=== PATIENT | female | born 1930 | race Caucasian/White ===

== ENCOUNTER → 2016-12-29 | Day surgery (SDC) | payer MEDICARE, BC, OTHER ==
[~2016-12-29] VITALS: Ht 160 cm; Wt 57.2 kg
[~2016-12-29] MED LIST: /MOXI40TA; ASPI325T; ATEN25TA; BIOT1CAP2 PO; BSS with VANC/TOB/EPI for EYE CASES IR ONE; CALC500T49 PO; COQ-30CA2 PO; CYCLOPENTOLATE 2% OPHTH SOLN 2ML BTL OS ONE; DEPA250T3; ECOT81TA5 PO; FOLI800C PO; FOSA70TA PO; FURO40TA2 PO; HEALON DUET (HEALON 10MG/ML 0.55ML & HEALON ENDOCOAT 30MG/ML 0.85ML) As Ordered ONE; LASI20TA PO; LEVO50TA5 PO; LIDOCAINE 1% SDV 5 ML VIAL As Ordered ONE; LIDOCAINE 4% INJ 5 ML AMP OU ONE; LISI-538 PO; LR 500 ML IV ONE; MIDAZOLAM INJ 2 MG/2 ML VIAL (J2250) As Ordered ONE; MOXIFLOXACIN IN BSS 0.25MG/0.25ML INTRACAMERAL INJ (OR EYE ONLY)(J2280) As Ordered ONE; NIAC250C13 PO; OFLOXACIN 0.3 % (OCUFLOX) OPTH SOL 5ML OS ONE; PHENYLEPHRINE 2.5% OPHTH SOL 2ML OS ONE; PLAV1TAB2 PO; POVIDONE-IODINE 5% OPHTH PREP SOL 30ML As Ordered ONE; SIMV10TA2 OR; SIMV10TA2 PO; SYNT50TA OR; TRIAMCINOLONE PRES FR 40 MG/ML 1ML(TRIESENCE)(OR EYE ONLY)(J3300 PER 1MG) As Ordered ONE; TROPICAMIDE 1% OPHTH SOLN 2ML OS ONE; VALS1TAB46 PO; VITA100067 PO; VITA50TA43 PO; fentaNYL 100 MCG/2 ML INJECTION (J3010) As Ordered ONE
[2016-12-29 11:05] VITALS: BP 149/67
== END | disposition home or self-care (01) ==
LOC: M SDC 09:01
PROVIDERS: ATTEND Ophthalmology
DX: H25.9 Unspecified age-related cataract (principal); I48.91 Unspecified atrial fibrillation; I10 Essential (primary) hypertension; E78.5 Hyperlipidemia, unspecified; E03.9 Hypothyroidism, unspecified; Z88.2 Allergy status to sulfonamides; Z79.899 Other long term (current) drug therapy
CPT/HCPCS: 66984; J2250; J2280; J3010; J3300; V2632

== ENCOUNTER 2018-08-10 16:07 | Emergency (ER) | payer MEDICARE, BC, OTHER ==
[~2018-08-10] VITALS: Ht 160 cm; Wt 62.7 kg
[~2018-08-10 16:07] MED LIST changes: -BSS with VANC/TOB/EPI for EYE CASES IR ONE; -CYCLOPENTOLATE 2% OPHTH SOLN 2ML BTL OS ONE; -HEALON DUET (HEALON 10MG/ML 0.55ML & HEALON ENDOCOAT 30MG/ML 0.85ML) As Ordered ONE; -LASI20TA PO; +LASI20TA3 PO; -LIDOCAINE 1% SDV 5 ML VIAL As Ordered ONE; -LIDOCAINE 4% INJ 5 ML AMP OU ONE; -LR 500 ML IV ONE; -MIDAZOLAM INJ 2 MG/2 ML VIAL (J2250) As Ordered ONE; -MOXIFLOXACIN IN BSS 0.25MG/0.25ML INTRACAMERAL INJ (OR EYE ONLY)(J2280) As Ordered ONE; -OFLOXACIN 0.3 % (OCUFLOX) OPTH SOL 5ML OS ONE; -PHENYLEPHRINE 2.5% OPHTH SOL 2ML OS ONE; -POVIDONE-IODINE 5% OPHTH PREP SOL 30ML As Ordered ONE; -TRIAMCINOLONE PRES FR 40 MG/ML 1ML(TRIESENCE)(OR EYE ONLY)(J3300 PER 1MG) As Ordered ONE; -TROPICAMIDE 1% OPHTH SOLN 2ML OS ONE; -fentaNYL 100 MCG/2 ML INJECTION (J3010) As Ordered ONE
[2018-08-10] MEDS ORDERED: LOSA50TA88 (16:20)
[2018-08-10] MEDS ORDERED: SPIR-10 (16:20)
[2018-08-10] MEDS ORDERED: ACETAMINOPHEN 325 MG TAB PO ONE (17:15)
--- NOTE | 2018-08-10 17:19 | REP ---
Clinical: Trauma. Fall. Technique: AP, lateral, bilateral oblique views of the left hand. Findings: Advanced age-related osteopenia and osteoarthritic degenerative changes are appreciated. No obvious acute fracture or dislocation appreciated. 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 No obvious acute fracture or dislocation. Electronically Signed by Ambrocio Luna MD 08/10/2018 05:10 P
--- NOTE | 2018-08-10 17:46 | REP ---
Clinical: Trauma/fall with headache. Comparison: 11/18/2013 . Findings: Age-related atrophy and microvascular ischemic changes are appreciated along with periventricular leukomalacia. The ventricles and sulci are symmetric. Dugan-white differentiation is maintained. There is no evidence for acute intracranial hemorrhage, mass/mass effect, pathology or infarction. No extra-axial fluid collection. Calvarium is intact. Paranasal sinuses and mastoid air cells are clear. 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 Impression: Age related atrophy and microvascular ischemic changes. No acute intracranial hemorrhage, infarction, or mass/mass effect. Electronically Signed by Ambrocio Luna MD 08/10/2018 05:38 P
[2018-08-10 18:29] VITALS: BP 172/74
--- NOTE | 2018-08-11 07:45 | REP ---
Clinical: Trauma. Fall. Technique: AP, limited lateral, and bilateral oblique views left knee. Findings: Age related osteopenia and generalized degenerative changes are appreciated. Peripheral vascular disease noted. No obvious acute fracture or dislocation. No definite effusion. Impression: Limited examination demonstrates osteopenia and generalized age-related changes. No obvious acute fracture or dislocation. Electronically Signed by Ambrocio Luna MD 08/10/2018 05:40 P
--- NOTE | 2018-08-11 20:41 | ECGEPIP ---
Stationary ECG Study [facility] - ED Test Date: 2018-08-10 Pat Name: THONY GALVEZ Department: Room: - Gender: F Hide Puller: alfonso : 1930 Requested By: JAN Funk PA-C Order Number: [id number] Reading MD: Laura Walsh Measurements Intervals [place] Rate: 68 P: 70 AR: 193 QRS: 69 QRSD: 80 T: 55 QT: 401 QTc: 428 Interpretive Statements SINUS RHYTHM WITH OCCASIONAL SUPRAVENTRICULAR PREMATURE COMPLEXES SIMILAR 11/18/13 Electronically Signed On 08-11-2018 20:41:26 EST by Laura Walsh
== END 2018-08-10 18:40 | disposition home or self-care (01) ==
LOC: M ED 16:07
DX: S61.412A Laceration without foreign body of left hand, initial encounter (principal); S80.02XA Contusion of left knee, initial encounter; S00.83XA Contusion of other part of head, initial encounter; W10.8XXA Fall (on) (from) other stairs and steps, initial encounter; Y92.098 Other place in other non-institutional residence as the place of occurrence of the external cause; M17.12 Unilateral primary osteoarthritis, left knee; M19.042 Primary osteoarthritis, left hand; M85.842 Other specified disorders of bone density and structure, left hand; M85.862 Other specified disorders of bone density and structure, left lower leg; I11.0 Hypertensive heart disease with heart failure; I50.9 Heart failure, unspecified; E03.9 Hypothyroidism, unspecified; Z86.73 Personal history of transient ischemic attack (TIA), and cerebral infarction without residual deficits; Z79.899 Other long term (current) drug therapy; Z79.82 Long term (current) use of aspirin; Z88.2 Allergy status to sulfonamides

== ENCOUNTER 2018-11-08 12:45 | Emergency (ER) | payer MEDICARE, BC, OTHER ==
[~2018-11-08] VITALS: Ht 162.6 cm; Wt 60.5 kg
[~2018-11-08 12:45] MED LIST changes: -/MOXI40TA; +AVEL1TAB2; +LOSA50TA88; +SPIR-10; -VALS1TAB46 PO; +VALS1TAB66 PO
--- NOTE | 2018-11-08 13:17 | REP ---
Clinical: Trauma. Fall. Comparison: 08/10/2018 Findings: Age-related atrophy and microvascular ischemic changes are appreciated. The ventricles and sulci are symmetric. Dugan-white differentiation is maintained. There is no evidence for acute intracranial hemorrhage, mass/mass effect, pathology or infarction. No extra-axial fluid collection. Calvarium is intact. Paranasal sinuses and mastoid air cells are clear. Subtle scalp hematoma overlies the right frontal bone. Impression: Age related atrophy and microvascular ischemic changes. No acute intracranial hemorrhage, infarction, or mass/mass effect. Electronically Signed by Ambrocio Luna MD 11/08/2018 01:09 P
--- NOTE | 2018-11-08 13:20 | REP ---
Clinical: Trauma. Fall. Technique: Axial noncontrast images from the skull base to the thoracic inlet with coronal and sagittal re-formations Findings: Age-related osteopenia and moderate/advanced multilevel degenerative disc osteophyte complexes are appreciated primarily involving the C4-C6 levels. Grade 1 anterolisthesis at the C3-4 level is appreciated and likely chronic based on the lack of anterior swelling. There is no evidence for acute fracture / compression injury. Spinal canal appears patent. Posterior elements and spinous processes appear intact. Paravertebral soft tissues are normal. Impression: 1. Moderate to advanced multilevel degenerative disc osteophyte complexes including suspected chronic grade 1 anterolisthesis at C3-4. 2. No acute fracture / compression injury. Electronically Signed by Ambrocio Luna MD 11/08/2018 01:12 P
[2018-11-08] MEDS ORDERED: ACETAMINOPHEN 325 MG TAB PO ONE (13:30)
[2018-11-08] MEDS ORDERED: ADACEL/BOOSTRIX VACCINE (DIPHTH/PERTUSS/ACELL/TETANUS)0.5ML SYR (90715) IM ONE (13:30)
--- NOTE | 2018-11-08 14:32 | REP ---
Clinical: Trauma. Technique: Two views of the right humerus. Findings: Age-related osteopenia and degenerative changes primarily involving the shoulder and elbow joints. No acute fracture or dislocation appreciated. Surrounding soft tissues are unremarkable. Impression: No acute fracture dislocation. Electronically Signed by Ambrocio Luna MD 11/08/2018 02:24 P
--- NOTE | 2018-11-08 14:34 | REP ---
Clinical: Trauma. Technique: AP, lateral, bilateral oblique views of the left knee. Findings: Generalized age-related changes are appreciated. No acute fracture or dislocation appreciated. No effusion. Vascular calcifications identified. Impression: No acute fracture or dislocation. Electronically Signed by Ambrocio Luna MD 11/08/2018 02:25 P
[2018-11-08] MEDS ORDERED: METO25TA PO (15:08)
[2018-11-08] MEDS ORDERED: TORS20TA2 PO (15:08)
[2018-11-08] MEDS ORDERED: LIDOCAINE 2% W/EPIN INJ 20ML **PRES FREE INJ ONE (15:15)
[2018-11-08 16:00] VITALS: BP 156/72
== END 2018-11-08 16:15 | disposition home or self-care (01) ==
LOC: M ED 12:45
DX: S01.81XA Laceration without foreign body of other part of head, initial encounter (principal); S80.02XA Contusion of left knee, initial encounter; S40.021A Contusion of right upper arm, initial encounter; W22.8XXA Striking against or struck by other objects, initial encounter; Y92.511 Restaurant or cafe as the place of occurrence of the external cause; I10 Essential (primary) hypertension; E07.9 Disorder of thyroid, unspecified; Z79.899 Other long term (current) drug therapy; Z79.890 Hormone replacement therapy; Z79.82 Long term (current) use of aspirin; Z88.1 Allergy status to other antibiotic agents; Z88.2 Allergy status to sulfonamides